=== PATIENT | male | born 1980 ===

== ENCOUNTER 2018-04-08 16:47 | Emergency (ER) | payer OTHER ==
[2018-04-08 16:53] VITALS: BP 113/79; PULSE 79; RESP 18; TEMP 98; O2SAT 100
--- NOTE | 2018-04-08 17:13 | ED PDOC ---
HPI: Trauma/Fall - HPI Time Seen by Provider: 04/08/18 16:52 Chief Complaint (Nursing): Trauma Chief Complaint (Provider): Back Pain s/p Fall History Per: Patient History/Exam Limitations: no limitations Onset/Duration Of Symptoms: Mins (prior to arrival) Additional Complaint(s): 37 year old male presents to the ED via EMS for evaluation of acute lower left back pain s/p falling prior to arrival. Patient states that while at work, on the phone with his boss, he slipped on a wet platform and held on to the railing as he fell down, striking his left lower back on the ledge of the stair. He reports immediate onset of pain, associated with shortness of breath and the feeling the wind had been knocked out of him. Currently, patient denies any shortness of breath, and notes there is only pain when he moves. Otherwise, (-) head injury, (-) loss of consciousness (-) saddle anesthesia (-) weakness/ numbness (-) incontinence (-) abd/chest pain (-)dizziness. Denies history of back injury and any other complaints at this time. PMD: Mic Coates Past Medical History Reviewed: Historical Data, Nursing Documentation, Vital Signs Vital Signs: Last Vital Signs Temp 98 F 04/08/18 16:50 Pulse 79 04/08/18 16:50 Resp 18 04/08/18 16:50 BP 113/79 04/08/18 16:50 Pulse Ox 100 04/08/18 16:50 - Medical History PMH: Asthma - Surgical History Other surgeries: left hand surgery; cyst removal - Family History Family History: States: Unknown Family Hx - Social History Current smoker - smoking cessation education provided: Yes SMOKER/PACKS PER DAY:: 1 Alcohol: None Drugs: Denies - Home Medications Home Medications: Ambulatory Orders Medication Instructions Recorded Ibuprofen [Motrin] 600 mg PO Q8 #20 tab 12/06/15 Neomycin/Polymyxin/Hydrocortis 3 drop OT TID #0 bottle 08/19/16 [Cortisporin Otic Susp] Cyclobenzaprine [Cyclobenzaprine 10 mg PO Q8 PRN #12 tab 04/08/18 HCl] Meloxicam [Mobic] 15 mg PO DAILY PRN #10 tab 04/08/18 - Allergies Allergies/Adverse Reactions: Allergies Allergy/AdvReac Type Severity Reaction Status Date / Time No Known Allergies Allergy Verified 04/08/18 16:50 Review of Systems ROS Statement: Except As Marked, All Systems Reviewed And Found Negative Constitutional: Negative for: Other (head injury) Respiratory: Positive for: Shortness of Breath (initially, but is now resolved) Musculoskeletal: Positive for: Back Pain (lower left, only with movement) Neurological: Negative for: Other (loss of consciousness) Physical Exam - Reviewed Nursing Documentation Reviewed: Yes Vital Signs Reviewed: Yes - Physical Exam Comments: GENERAL APPEARANCE: Patient is awake, alert, oriented x 3, in no acute distress. Ambulatory in ED with steady gait. SKIN: Warm, dry; (-) cyanosis. EYES: (-) conjunctival pallor. ENMT: Mucous membranes moist. NECK: Supple, FROM (-) tenderness, (-) stiffness, (-) lymphadenopathy. CHEST AND RESPIRATORY: (-) rales, (-) rhonchi, (-) wheezes; breath sounds equal bilaterally. Speaking in full sentences. HEART AND CARDIOVASCULAR: (-) irregularity; (-) murmur, (-) gallop. (-) chest wall tenderness. ABDOMEN AND GI: Soft; (-) tenderness; (-) palpable mass (-) guarding (-) ecchymosis (-) distention. BACK: Superficial abrasions noted to left paralumbar region with (-) active bleeding; (-) paralumbar tenderness, (-) ecchymosis (-) direct bony tenderness, (-) deformity. (-) bilateral CVA tenderness. EXTREMITIES: (-) deformity. Distal pulses good bilaterally. NEURO AND PSYCH: Mental status as above. Intact sensation bilaterally; normal strength in extension of the knees, plantar and dorsiflexion of the toes. Speech clear, (-) facial asymmetry. - ECG O2 Sat by Pulse Oximetry: 100 (RA) Pulse Ox Interpretation: Normal Medical Decision Making Medical Decision Making: Time: 17:00 Initial Impression: acute back pain/contusion s/p fall Initial Plan: --Flexeril 10 mg PO (Patient is not driving home) --Toradol 30 mg IM --Re-evaluation 1820 On re-evaluation, patient reports improvement of symptoms. Ambulatory in ED with a steady, unassisted gait. Patient remains AAOx3, in no acute distress. Neck is supple, lungs CTA, cardiac RRR, abdomen is soft and non-tender, neuro exam shows no focal findings. VSS, stable for discharge. Diagnostic results d/w the patient in great detail. Dx of acute back pain, contusion s/p fall d/w the patient. Based on history, exam and diagnostic results plan will be for discharge and outpatient follow up. Advised to follow up with primary care physician in 1-2 days without fail. Advised to take medication as prescribed. Return to the emergency room at any time for any new or worsening symptoms. Patient states he fully agrees with and understands discharge instructions. States that he agrees with the plan and disposition. Verbalized and repeated discharge instructions and plan. I have given the patient opportunity to ask any additional questions. Scribe Attestation: Documented by Michelle Godinez, acting as a scribe for Sirisha Rosas PA-C. Provider Scribe Attestation: All medical record entries made by the Scribe were at my direction and personally dictated by me. I have reviewed the chart and agree that the record accurately reflects my personal performance of the history, physical exam, medical decision making, and the department course for this patient. I have also personally directed, reviewed, and agree with the discharge instructions and disposition. Disposition - Clinical Impression Clinical Impression: Acute back pain, Contusion, Fall (on) (from) other stairs and steps, initial encounter - Patient ED Disposition Is Patient to be Admitted: No Counseled Patient/Family Regarding: Studies Performed, Diagnosis, Need For Followup, Rx Given - Disposition Referrals: Nayeli Nunez MD [Staff Provider] - Disposition: Routine/Home Disposition Time: 18:24 Condition: IMPROVED Additional Instructions: FOLLOW UP WITH PMD/ORTHO IN 1-2 DAYS WITHOUT FAIL. RETURN TO ED WITH ANY NEW OR WORSENING SYMPTOMS. Prescriptions: Cyclobenzaprine [Cyclobenzaprine HCl] 10 mg PO Q8 PRN #12 tab PRN Reason: Muscle Spasm Meloxicam [Mobic] 15 mg PO DAILY PRN #10 tab PRN Reason: Pain, Moderate (4-7) Instructions: Low Back Pain in Adults, Taking Care of Bruises, Contusion (DC) Forms: teextee (Japanese), [facility] ED School/Work Excuse Print Language: JORDANIAN - POA Present On Arrival: Falls Or Trauma
== END 2018-04-08 18:55 | disposition home or self-care (01) ==
LOC: H.ER 16:47
DX: S30.0XXA Contusion of lower back and pelvis, initial encounter (principal); W10.8XXA Fall (on) (from) other stairs and steps, initial encounter
CPT/HCPCS: 96372; 99284; J1885